=== PATIENT | female | born 1970 | race Caucasian/White ===

== ENCOUNTER 2019-12-07 01:30 | Emergency (ER) | payer OTHER ==
[~2019-12-07] VITALS: Ht 160 cm; Wt 96.0 kg
[2019-12-07] MEDS ORDERED: IV RINGERS SOLUTION,LACTATED 1,000 ML IV SCH (02:04)
--- NOTE | 2019-12-07 02:04 | PHYS DOC ---
Past History Past Medical History: Kidney Stones Past Surgical History: , Hysterectomy Alcohol Use: Rarely General Adult EDM: Chief Complaint: FLANK PAIN HPI: HPI: "...I was awaken with severe Rt. flank pain..."..."It feels just like a kidney stone.. I had one in 1994, 1996, 2008...it is the worse pain...." Patient is a 49 year old female who presents with above hx and complaints of severe Rt. flank pain. Patient describes her pain as severe 10 out of 10. Pain has lessened a little before arrival to the emergency department currently rated 6 out of 10. Pain radiates from right flank to right groin. Patient has not vomited but feels nauseated. Patient denies any intake of bad food. Did have a stool yesterday. No recent travel outside the [place] area. No specific ill contacts. No history immunosuppression. Has had previous abdomen surgeries appendectomy hysterectomy. Patient only follows at [facility]. Review of Systems: Review of Systems: Constitutional: Denies fever or chills Eyes: Denies change in visual acuity HENT: Denies nasal congestion or sore throat Respiratory: Denies cough or shortness of breath Cardiovascular: Denies chest pain or edema GI: Complains of abdominal pain, nausea. Denies, vomiting, bloody stools or diarrhea : Denies dysuria Musculoskeletal: Complains of right flank back pain Integument: Denies rash Neurologic: Denies headache, focal weakness or sensory changes Endocrine: Denies polyuria or polydipsia Lymphatic: Denies swollen glands Psychiatric: Denies depression or anxiety Heart Score: HEART Score for Chest Pain: HEART Score for Chest Pain Response (Comments) Value History Slighlty/Non-Suspicious 0 ECG Normal 0 Age >45 - < 65 1 Risk Factors 1 or 2 Risk Factors 1 Troponin < Normal Limit 0 Total 2 Risk Factors: Risk Factors: DM, Current or recent (<one month) smoker, HTN, HLP, family history of CAD, obesity. Risk Scores: Score 0 - 3: 2.5% MACE over next 6 weeks - Discharge Home Score 4 - 6: 20.3% MACE over next 6 weeks - Admit for Clinical Observation Score 7 - 10: 72.7% MACE over next 6 weeks - Early Invasive Strategies Family History: Family History: Noncontributory to presentation. Current Medications: Current Meds: See nursing for home meds Allergies: Allergies: No known drug allergies Physical Exam: PE: Constitutional: in acute distress, non-toxic appearance. [] HENT: Normocephalic, atraumatic, bilateral external ears normal, oropharynx moist, no oral exudates, nose normal. [] Eyes: PERRLA, EOMI, conjunctiva normal, no discharge. Glasses Neck: Normal range of motion, no tenderness, supple, no stridor. [] Cardiovascular:Heart rate regular rhythm, no murmur [] Lungs & Thorax: Bilateral breath sounds equal at apex auscultation []. Basilar crackles Abdomen: Bowel sounds decreased, soft, no tenderness, no masses, no pulsatile masses. [] Obese. Umbilicus hernia. Old surgery scars. Distended. No specific areas of rebound pain Skin: Warm, dry, no erythema, no rash. [] Back: No tenderness, right flank CVA tenderness. [] Extremities: No tenderness, no cyanosis, no clubbing, ROM intact, no edema. [] No psoas sign. Neurologic: Alert and oriented X 3, normal motor function, normal sensory function, no focal deficits noted. [] Psychologic: Affect anxious, judgement normal, mood normal. [] Current Patient Data: Vital Signs: Vital Signs Date Time Temp Pulse Resp B/P (MAP) Pulse Ox O2 Delivery O2 Flow Rate FiO2 12/07/19 01:41 98.9 EKG: EKG: My interpretation EKG shows a sinus rhythm at 66 bpm. Some bimodal P waves. No findings acute STEMI with contralateral changes. [] Radiology/Procedures: Radiology/Procedures: [address] [address] IMAGING REPORT Signed PATIENT: DINH GRIFFITHS ACCOUNT: [id number] : 1970 LOCATION: ER AGE: 49 SEX: F EXAM STATUS: REG ER ORD. PHYSICIAN: CHAVO FORD MD REASON: severe Rt, flank pain, hx. prior kidney stones. PROCEDURE: ACUTE ABDOMEN SERIES EXAM: Frontal view of the chest, AP views of the abdomen in upright and supine positions. CLINICAL INDICATION: Reason: severe Rt, flank pain, hx. prior kidney stones. / Spl. Instructions: / History: COMPARISON: None. FINDINGS and IMPRESSION: The heart is not enlarged. Mediastinal and hilar contours are normal. No focal parenchymal airspace opacity. No pleural effusion or pneumothorax. No abnormal small or large bowel dilatation. Moderate to large volume colonic stool content. No abnormal soft tissue mass effect. No suspicious calcifications are seen. No free intraperitoneal gas. Electronically signed by: Masoud Fung MD (12/07/2019 3:02 AM) [id number] DICTATED AND SIGNED BY: MASOUD FUNG MD DATE: 12/07/19 030 CC: CHAVO FORD MD; HERB SERNA DO, MPH ~ [place] [address] IMAGING REPORT Signed PATIENT: DINH GRIFFITHS ACCOUNT: [id number] : 1970 LOCATION: ER AGE: 49 SEX: F EXAM STATUS: REG ER ORD. PHYSICIAN: CHAVO FORD MD REASON: severe Rt, flank pain, hx. prior kidney stones. PROCEDURE: CT ABDOMEN PELVIS WO CONTRAST EXAM: CT Abdomen and Pelvis without IV contrast CLINICAL HISTORY: severe Rt, flank pain, hx. prior kidney stones. COMPARISON: none TECHNIQUE: Helical CT of the abdomen and pelvis without intravenous contrast. Axial, coronal and sagittal reformatted images were generated. PQRS compliance statement - One or more of the following individualized dose reduction techniques were utilized for this study: 1. Automated exposure control 2. Adjustment of the mA and/or kV according to patient size 3. Use of iterative reconstruction technique FINDINGS: Lack of intravenous contrast limits evaluation of solid organs, vasculature, and lymph nodes. Lower chest: Patchy opacities peripheral right lower lobe likely atelectasis. Abdomen and Pelvis: No focal liver lesion. Gallbladder is normal. Spleen is unremarkable. Adrenal glands are normal. Pancreas is unremarkable. Punctate nonobstructing left interpolar-lower pole renal calculi are seen.. A 4 mm calculus is seen within the distal right ureter. Mild right hydronephrosis. Bladder is unremarkable. Appendix is is not seen. Moderate colonic stool content is seen. Colonic diverticula are noted. No evidence for acute diverticulitis. No bowel obstruction. Bladder is unremarkable. Small fat-containing periumbilical hernia is seen. No abdominal or pelvic ascites. No abdominal or pelvic lymphadenopathy. Bones: Multilevel degenerative changes of spine are seen. No aggressive osseous lesion. IMPRESSION: 1. 4 mm calculus within the distal right ureter results in mild right hydronephrosis. 2. Colonic diverticula are seen without evidence for acute diverticulitis. 3. Moderate colonic stool content. No bowel obstruction. 4. Fat-containing periumbilical hernia is seen. Electronically signed by: Masoud Fung MD (12/07/2019 3:02 AM) [id number] DICTATED AND SIGNED BY: MASOUD FUNG MD DATE: 12/07/19 030 CC: CHAVO FORD MD; HERB SERNA DO, MPH ~ Course & Med Decision Making: Course & Med Decision Making Pertinent Labs and Imaging studies reviewed. (See chart for details) Discussed presentation, testing results with patient. Patient requests to be discharged home. Patient to push fluids. Patient does take Tylenol and ibuprofen for pain. For marked pain may take Vicoprofen up to 4 times a day. Patient takes Zofran 8 up to 4 times a day for active vomiting. Patient follow-up with primary care. Patient follow-up with urology. Patient to save stone if passed. Patient take Flomax 0.4 mg every night until stone is passed. Patient warned that this drug can cause hypotension. Patient remain on a clear fluid diet if actively vomiting. Return if any concerns. Impression : 1.Renal Colic - Distal Stone 4mm Rt. 2.Constipation [] Dragon Disclaimer: Nuzhat Disclaimer: This electronic medical record was generated, in whole or in part, using a voice recognition dictation system. Departure Departure: Disposition: 01 HOME/RESIDENCE PRIOR TO ADM Condition: STABLE Referrals: HERB SERNA DO, MPH (PCP) Scripts Ondansetron Hcl (ZOFRAN) 8 Mg Tablet 8 MG PO QIDPRN PRN for active nausea and vomiting, #30 BOTTLE Prov: CHAVO FORD MD 12/07/19 Hydrocodone/Ibuprofen (HYDROCODONE-IBUPROFEN 7.5-200 ) 1 Each Tablet 1 TAB PO PRN Q6HRS PRN for PAIN, #30 TAB 0 Refills Prov: CHAVO FORD MD 12/07/19 Tamsulosin Hcl (FLOMAX) 0.4 Mg Cap.er.24h 0.4 MG PO DAILY for renal stone for 30 Days, #30 CAP.SR Prov: CHAVO FORD MD 12/07/19 Nuzhat Disclaimer This chart was dictated in whole or in part using Voice Recognition software in a busy, high-work load, and often noisy Emergency Department environment. It may contain unintended and wholly unrecognized errors or omissions. Dragon Disclaimer This chart was dictated in whole or in part using Voice Recognition software in a busy, high-work load, and often noisy Emergency Department environment. It may contain unintended and wholly unrecognized errors or omissions. CHAVO FORD MD Dec 07, 2019 02:04
[2019-12-07] MEDS ORDERED: MORPHINE SULFATE 10 MG/ML SYRINGE. SQ ONE (02:15)
[2019-12-07] MEDS ORDERED: ONDANSETRON PF 4 MG/2 ML VIAL. IVP ONE (02:15)
[2019-12-07] MEDS ORDERED: KETOROLAC 30 MG/ML VIAL. IVP ONE (02:15)
[2019-12-07] MEDS ORDERED: FAMOTIDINE 20 MG/2 ML VIAL IVP ONE (02:15)
[2019-12-07 02:53] LABS: BILIRUBIN,URINE NEG (NEG); CLARITY,URINE CLEAR; COLOR,URINE YELLOW; GLUCOSE,URINE NEG (NEG); NITRITE,URINE NEG (NEG); UROBILINOGEN,URINE 0.2 mg/dL (0.2 mg/dL)
[2019-12-07 02:54] LABS: BACTERIA,URINE 0 /HPF (0-FEW); BARBITURATES NEG (NEG); BENZODIAZEPINES NEG (NEG); CANNABINOIDS NEG (NEG); COCAINE NEG (NEG); METHADONE NEG (NEG); OPIATES NEG (NEG); PHENCYCLIDINE NEG (NEG); RBC,URINE >40 /HPF (0-2); SQUAMOUS EPITHELIAL CELL,UR OCC /LPF
[2019-12-07 02:58] LABS: AMPHETAMINE/METHAMPHETAMINE NEG (NEG)
--- NOTE | 2019-12-07 03:03 | EKG ---
[address] [address] Test Date: 2019-12-07 Test Time: 02:59:07 Pat Name: DINH GRIFFITHS Department: Room: Gender: F Emergency Spill Response Technician: : 1970 Requested By: CHAVO FORD Order Number: [id number] Reading MD: Lalito Warren Measurements Intervals [place] Rate: 66 P: 55 WV: 176 QRS: 26 QRSD: 82 T: 26 QT: 422 QTc: 444 Interpretive Statements SINUS RHYTHM Electronically Signed On 12-07-2019 12:08:09 CDT by Lalito Warren
--- NOTE | 2019-12-07 03:05 | RAD ---
EXAM: CT Abdomen and Pelvis without IV contrast CLINICAL HISTORY: severe Rt, flank pain, hx. prior kidney stones. COMPARISON: none TECHNIQUE: Helical CT of the abdomen and pelvis without intravenous contrast. Axial, coronal and sagittal reformatted images were generated. PQRS compliance statement - One or more of the following individualized dose reduction techniques were utilized for this study: 1. Automated exposure control 2. Adjustment of the mA and/or kV according to patient size 3. Use of iterative reconstruction technique FINDINGS: Lack of intravenous contrast limits evaluation of solid organs, vasculature, and lymph nodes. Lower chest: Patchy opacities peripheral right lower lobe likely atelectasis. Abdomen and Pelvis: No focal liver lesion. Gallbladder is normal. Spleen is unremarkable. Adrenal glands are normal. Pancreas is unremarkable. Punctate nonobstructing left interpolar-lower pole renal calculi are seen.. A 4 mm calculus is seen within the distal right ureter. Mild right hydronephrosis. Bladder is unremarkable. Appendix is is not seen. Moderate colonic stool content is seen. Colonic diverticula are noted. No evidence for acute diverticulitis. No bowel obstruction. Bladder is unremarkable. Small fat-containing periumbilical hernia is seen. No abdominal or pelvic ascites. No abdominal or pelvic lymphadenopathy. Bones: Multilevel degenerative changes of spine are seen. No aggressive osseous lesion. IMPRESSION: 1. 4 mm calculus within the distal right ureter results in mild right hydronephrosis. 2. Colonic diverticula are seen without evidence for acute diverticulitis. 3. Moderate colonic stool content. No bowel obstruction. 4. Fat-containing periumbilical hernia is seen. Electronically signed by: Masoud Johnson MD (12/07/2019 3:02 AM) [id number]
--- NOTE | 2019-12-07 03:05 | RAD ---
EXAM: Frontal view of the chest, AP views of the abdomen in upright and supine positions. CLINICAL INDICATION: Reason: severe Rt, flank pain, hx. prior kidney stones. / Spl. Instructions: / History: COMPARISON: None. FINDINGS and IMPRESSION: The heart is not enlarged. Mediastinal and hilar contours are normal. No focal parenchymal airspace opacity. No pleural effusion or pneumothorax. No abnormal small or large bowel dilatation. Moderate to large volume colonic stool content. No abnormal soft tissue mass effect. No suspicious calcifications are seen. No free intraperitoneal gas. Electronically signed by: Masoud Johnson MD (12/07/2019 3:02 AM) [id number]
[2019-12-07 03:11] LABS: BASO % 1 % (0-3); EOS # 0.1 x10^3/uL (0.0-0.7); EOS % 1 % (0-3); HEMATOCRIT 43.7 % (36.0-47.0); HEMOGLOBIN 14.7 g/dL (12.0-15.5); LYMPH # 2.4 x10^3/uL (1.0-4.8); LYMPH % 36 % (24-48); MEAN CORPUSCULAR HEMOGLOBIN 29 pg (25-35); MEAN CORPUSCULAR HGB CONC 34 g/dL (31-37); MEAN CORPUSCULAR VOLUME 86 fL (79-100); MONO # 0.6 x10^3/uL (0.0-1.1); MONO % 9 % (0-9); NEUT # 3.5 x10^3uL (1.8-7.7); NEUT % 53 % (31-73); PLATELET COUNT 256 x10^3/uL (140-400); RED BLOOD COUNT 5.07 x10^6/uL (3.50-5.40); RED CELL DISTRIBUTION WIDTH 13.8 % (11.5-14.5); WHITE BLOOD COUNT 6.6 x10^3/uL (4.0-11.0)
[2019-12-07] MEDS ORDERED: TAMS0.4C97 PO (03:12)
[2019-12-07] MEDS ORDERED: ONDA8TAB9 PO (03:12)
[2019-12-07] MEDS ORDERED: HYDR-1179 PO (03:12)
[2019-12-07] MEDS ORDERED: TAMSULOSIN 0.4 MG CAP.ER.24H. PO ONE (03:15)
[2019-12-07] MEDS ORDERED: MAGNESIUM HYDROXIDE 2,400 MG/30 ML ORAL.SUSP. PO ONE (03:30)
[2019-12-07 03:41] LABS: CALCIUM 9.3 mg/dL (8.5-10.1); CREATININE 0.8 mg/dL (0.6-1.0); GFR 76.2; POTASSIUM 3.8 mmol/L (3.5-5.1)
[2019-12-07 03:53] LABS: ALBUMIN 3.7 g/dL (3.4-5.0); DIRECT BILIRUBIN 0.1 mg/dL (0.0-0.2); TOTAL BILIRUBIN 0.4 mg/dL (0.2-1.0); TOTAL PROTEIN 7.5 g/dL (6.4-8.2)
== END 2019-12-07 04:18 | disposition home or self-care (01) ==
LOC: ER 01:30
DX: N13.2 Hydronephrosis with renal and ureteral calculous obstruction (principal); K59.00 Constipation, unspecified; K57.30 Diverticulosis of large intestine without perforation or abscess without bleeding; K42.9 Umbilical hernia without obstruction or gangrene; Z87.442 Personal history of urinary calculi; Z98.890 Other specified postprocedural states; Z90.710 Acquired absence of both cervix and uterus
CPT/HCPCS: 36415; 74022; 74176; 80048; 80076; 80307; 81001; 81025; 82150; 82550; 83690; 84484; 85025; 85610; 85730; 87086; 93005; 96372; 96374; 96375; 99285; J1885; J2270; J2405; J3490; J7120

== ENCOUNTER 2019-12-13 06:45 | Emergency (ER) | payer OTHER ==
[~2019-12-13] VITALS: Ht 160 cm; Wt 96.0 kg
[~2019-12-13 06:45] MED LIST: HYDR-1179 PO; ONDA8TAB9 PO; TAMS0.4C97 PO
[2019-12-13 06:55] VITALS: BP 161/66
[2019-12-13] MEDS ORDERED: IV NORMAL SALINE 1,000ML 1,000 ML IV SCH (07:07)
--- NOTE | 2019-12-13 07:13 | PHYS DOC ---
Past History Past Medical History: Kidney Stones Past Surgical History: , Hysterectomy Alcohol Use: Rarely General Adult EDM: Chief Complaint: FLANK PAIN HPI: HPI: Patient is a 49-year-old female presents to the emergency department for evaluation. She was diagnosed with a kidney stone last week, on CT in the emergency department. Her ER notes, imaging reports, and lab results have been reviewed. She states that she has had kidney stones in the past and felt that this stone would just pass on its own, she has been taking the Flomax as prescribed and using the hydrocodone as needed for pain. However, she states that she did not notice the stone pass (she has been using a urine strainer). She states that she developed an increase in pain this morning in her right lower abdomen radiating towards the right groin. She has not had any fevers or chills. She has had some intermittent nausea, which responded to the prescribed Zofran, but no vomiting. She has not had any dysuria. She states her urine has been "dark" but not grossly bloody. She has not arranged any follow-up yet, thinking the stone would pass on its own. There are no alleviating or exacerbating factors to her symptoms. She states she came to the emergency department today because her pain increased this morning. Review of Systems: Review of Systems: Constitutional: Denies fever or chills Eyes: Denies change in visual acuity HENT: Denies nasal congestion or sore throat Respiratory: Denies cough or shortness of breath Cardiovascular: Denies chest pain or edema GI: Denies vomiting, bloody stools or diarrhea : Denies dysuria or urinary frequency. Musculoskeletal: Denies back pain or joint pain Integument: Denies rash Neurologic: Denies headache, focal weakness or sensory changes Endocrine: Denies polyuria or polydipsia Lymphatic: Denies swollen glands Psychiatric: Denies depression or anxiety Heart Score: Risk Factors: Risk Factors: DM, Current or recent (<one month) smoker, HTN, HLP, family history of CAD, obesity. Risk Scores: Score 0 - 3: 2.5% MACE over next 6 weeks - Discharge Home Score 4 - 6: 20.3% MACE over next 6 weeks - Admit for Clinical Observation Score 7 - 10: 72.7% MACE over next 6 weeks - Early Invasive Strategies Allergies: Allergies: Allergies Coded Allergies Type Severity Reaction Last Updated Verified No Known Allergies Allergy Unknown 12/07/19 Yes Physical Exam: PE: PHYSICAL EXAM: CONSTITUTIONAL: Well developed, well nourished HEAD: normocephalic, atraumatic EENT: PERRL, EOMI. Conjunctivae normal color, sclerae non-icteric; moist mucous membranes. NECK: Supple, non-tender; no meningismus. LUNGS: Lungs CTA, breathing even and unlabored. Normal air movement. HEART: Regular rate and rhythm, no murmur CHEST: No deformity; non-tender ABDOMEN: The abdomen is soft, there is very mild right lower abdominal tenderness to palpation without rebound or guarding, the remainder the abdomen is soft and non-tender, no masses or bruits. EXTREM: Normal ROM; no deformity, no calf tenderness. Normal pulses palpable in all extremities. There is no pedal edema. SKIN: No rash; no diaphoresis NEURO: Alert; normal speech and cognition; CN's grossly intact; strength grossly intact without focal deficit. BACK: No CVA TTP. Current Patient Data: Labs: Laboratory Tests Test 12/13/19 07:15 12/13/19 07:16 White Blood Count 5.6 x10^3/uL Red Blood Count 5.13 x10^6/uL Hemoglobin 14.9 g/dL Hematocrit 44.9 % Mean Corpuscular Volume 88 fL Mean Corpuscular Hemoglobin 29 pg Mean Corpuscular Hemoglobin Concent 33 g/dL Red Cell Distribution Width 13.6 % Platelet Count 248 x10^3/uL Neutrophils (%) (Auto) 58 % Lymphocytes (%) (Auto) 33 % Monocytes (%) (Auto) 7 % Eosinophils (%) (Auto) 2 % Basophils (%) (Auto) 1 % Neutrophils # (Auto) 3.3 x10^3uL Lymphocytes # (Auto) 1.8 x10^3/uL Monocytes # (Auto) 0.4 x10^3/uL Eosinophils # (Auto) 0.1 x10^3/uL Basophils # (Auto) 0.0 x10^3/uL Sodium Level 140 mmol/L Potassium Level 3.7 mmol/L Chloride Level 102 mmol/L Carbon Dioxide Level 31 mmol/L Anion Gap 7 Blood Urea Nitrogen 15 mg/dL Creatinine 0.9 mg/dL Estimated GFR (Cockcroft-Gault) 66.5 Glucose Level 137 mg/dL Calcium Level 9.6 mg/dL Urine Collection Type Unknown Urine Color Yellow Urine Clarity Hazy Urine pH 5.5 Urine Specific [place] >=1.030 Urine Protein 100 mg/dl Urine Glucose (UA) Neg mg/dL Urine Ketones (Stick) 15 mg/dL Urine Blood Large Urine Nitrite Neg Urine Bilirubin Neg Urine Urobilinogen Dipstick 0.2 mg/dL Urine Leukocyte Esterase Neg Urine RBC >40 /HPF Urine WBC Occ /HPF Urine Squamous Epithelial Cells Few /LPF Urine Bacteria 0 /HPF Current Medications Medications (Trade) Dose Ordered Sig/Edilson Route PRN Reason Start Time Stop Time Status Last Admin Dose Admin Sodium Chloride 1,000 ml @ 1,000 mls/hr Q1H IV 12/13/19 07:07 12/13/19 08:06 DC 12/13/19 07:26 Ketorolac Tromethamine (Toradol 30mg Vial) 30 mg 1X ONCE IVP 12/13/19 07:15 12/13/19 07:16 DC 12/13/19 07:26 Vital Signs: Vital Signs Date Time Temp Pulse Resp B/P (MAP) Pulse Ox O2 Delivery O2 Flow Rate FiO2 12/13/19 06:55 97.5 94 16 161/66 (97) 99 Room Air EKG: EKG: [] Radiology/Procedures: Radiology/Procedures: PROCEDURE: KUB EXAM: KUB 12/13/2019 7:07 AM CLINICAL INDICATION:Right sided pain, recent stone on CT COMPARISON:Abdominal radiograph 01/04/2009 CT abdomen and pelvis 12/07/2019 FINDINGS: AP supine abdominal radiograph. Known left nephrolithiasis and small calculus in the distal right ureter are not definitively seen on this exam. Bowel gas pattern is nonspecific and nonobstructive. Normal volume stool. No acute osseous abnormality. IMPRESSION:Known urolithiasis on recent CT is not well seen on this exam.[] Course & Med Decision Making: Course & Med Decision Making Pertinent Labs and Imaging studies reviewed. (See chart for details) [] 8:20 AM: The patient remained stable, she is feeling somewhat better after administration of Toradol. She is feeling better at this time. I discussed the importance of close outpatient neurology follow-up and return precautions. Nuzhat Disclaimer: Nuzhat Disclaimer: This electronic medical record was generated, in whole or in part, using a voice recognition dictation system. Departure Departure: Impression: Primary Impression: Kidney stone on right side Disposition: 01 HOME/RESIDENCE PRIOR TO ADM Condition: STABLE Referrals: HERB SERNA DO, MPH (PCP) Patient Instructions: Kidney Stones Additional Instructions: Follow-up with [facility], for further evaluation. Please call [phone] to schedule an appointment. Use the previously prescribed pain medication as needed for pain not controlled by ketorolac.The prescribed medication may cause drowsiness. Use caution while taking. Strain your urine. If you find a kidney stone, bring it to your urology follow- up appointment, as this may help the urologist to determine what is causing the stone what you might be able to do to prevent this from happening in the future. Scripts [Toradol] No Conflict Check 10 MG PO TID PRN for PAIN, #30 Prov: MARGARITA STOUT MD 12/13/19 Justification of Admission: Justification of Admission: Justification of Admission Dx: N/A MARGARITA STOUT MD Dec 13, 2019 07:13
[2019-12-13] MEDS ORDERED: KETOROLAC 30 MG/ML VIAL. IVP ONE (07:15)
[2019-12-13 07:44] LABS: BASO % 1 % (0-3); EOS # 0.1 x10^3/uL (0.0-0.7); EOS % 2 % (0-3); HEMATOCRIT 44.9 % (36.0-47.0); HEMOGLOBIN 14.9 g/dL (12.0-15.5); LYMPH # 1.8 x10^3/uL (1.0-4.8); LYMPH % 33 % (24-48); MEAN CORPUSCULAR HEMOGLOBIN 29 pg (25-35); MEAN CORPUSCULAR HGB CONC 33 g/dL (31-37); MEAN CORPUSCULAR VOLUME 88 fL (79-100); MONO # 0.4 x10^3/uL (0.0-1.1); MONO % 7 % (0-9); NEUT # 3.3 x10^3uL (1.8-7.7); NEUT % 58 % (31-73); PLATELET COUNT 248 x10^3/uL (140-400); RED BLOOD COUNT 5.13 x10^6/uL (3.50-5.40); RED CELL DISTRIBUTION WIDTH 13.6 % (11.5-14.5); WHITE BLOOD COUNT 5.6 x10^3/uL (4.0-11.0)
[2019-12-13 07:48] LABS: CALCIUM 9.6 mg/dL (8.5-10.1); CREATININE 0.9 mg/dL (0.6-1.0); GFR 66.5; POTASSIUM 3.7 mmol/L (3.5-5.1)
--- NOTE | 2019-12-13 07:54 | RAD ---
EXAM: KUB 12/13/2019 7:07 AM CLINICAL INDICATION:Right sided pain, recent stone on CT COMPARISON:Abdominal radiograph 01/04/2009 CT abdomen and pelvis 12/07/2019 FINDINGS: AP supine abdominal radiograph. Known left nephrolithiasis and small calculus in the distal right ureter are not definitively seen on this exam. Bowel gas pattern is nonspecific and nonobstructive. Normal volume stool. No acute osseous abnormality. IMPRESSION:Known urolithiasis on recent CT is not well seen on this exam. Electronically signed by: Ghazal Willson MD (12/13/2019 7:51 AM) [id number]
[2019-12-13 08:03] LABS: BACTERIA,URINE 0 /HPF (0-FEW); BILIRUBIN,URINE NEG (NEG); CLARITY,URINE HAZY; COLOR,URINE YELLOW; GLUCOSE,URINE NEG (NEG); NITRITE,URINE NEG (NEG); RBC,URINE >40 /HPF (0-2); SQUAMOUS EPITHELIAL CELL,UR FEW /LPF; UROBILINOGEN,URINE 0.2 mg/dL (0.2 mg/dL); WBC,URINE OCC /HPF (0-4)
[2019-12-13] MEDS ORDERED: Toradol PO (08:20)
[2019-12-13] MEDS ORDERED: MORPHINE SULFATE 4 MG/ML DISP.SYRIN. IV ONE (08:30)
== END 2019-12-13 08:52 | disposition home or self-care (01) ==
LOC: ER 06:45
DX: N20.0 Calculus of kidney (principal); Z87.442 Personal history of urinary calculi; Z98.890 Other specified postprocedural states; Z90.710 Acquired absence of both cervix and uterus
CPT/HCPCS: 36415; 74018; 80048; 81001; 85025; 96374; 96375; 99284; J1885; J2270; J7030